=== PATIENT | male | born 1950 | race African-American/Black ===

== ENCOUNTER 2017-05-12 04:32 | Emergency (ER) | payer OTHER ==
[~2017-05-12] VITALS: Ht 175.3 cm; Wt 86.4 kg
[~2017-05-12 04:32] MED LIST: ASPI-1182 PO; LISI40TA4 PO; METO50 PO; MORP60TA6 PO; NAPR-58 PO; PERCT PO; QUET300T2 PO
[2017-05-12 04:34] VITALS: BP 158/85
[2017-05-12] MEDS ORDERED: HYDR25TA PO (04:42)
== END 2017-05-12 05:22 | disposition home or self-care (01) ==
LOC: EMS 04:33
DX: S13.4XXA Sprain of ligaments of cervical spine, initial encounter (principal); S39.012A Strain of muscle, fascia and tendon of lower back, initial encounter; I10 Essential (primary) hypertension; V49.40XA Driver injured in collision with unspecified motor vehicles in traffic accident, initial encounter; Y93.89 Activity, other specified; Y92.89 Other specified places as the place of occurrence of the external cause; Y99.8 Other external cause status
CPT/HCPCS: 99281

== ENCOUNTER 2023-01-24 00:49 | Emergency (ER) | payer MEDICARE, OTHER ==
[~2023-01-24] VITALS: Ht 175.3 cm; Wt 85.0 kg
[~2023-01-24 00:49] MED LIST changes: -ASPI-1182 PO; +HYDR25TA2 PO; -LISI40TA4 PO; +LISI40TA9 PO; -METO50 PO; -MORP60TA6 PO; -NAPR-58 PO; -QUET300T2 PO
[2023-01-24 00:54] VITALS: BP 159/96; PULSE 71; RESP 20; TEMP 98.2
[2023-01-24] MEDS ORDERED: DOXYCYCLINE HYCLATE 100 MG TABLET PO ONE (01:00)
[2023-01-24] MEDS ORDERED: BACITRACIN 0.9 GM PACKET OINTMENT TP ONE (01:00)
[2023-01-24] MEDS ORDERED: DOXY-354 PO (01:07)
[2023-01-24] MEDS ORDERED: BACI28.410 TP (01:07)
== END 2023-01-24 01:23 | disposition home or self-care (01) ==
LOC: EMS 00:50
DX: L03.113 Cellulitis of right upper limb (principal); I10 Essential (primary) hypertension
CPT/HCPCS: 99283

== ENCOUNTER 2023-06-17 19:19 | Emergency (ER) | payer MEDICARE, OTHER ==
[~2023-06-17] VITALS: Ht 175.3 cm; Wt 86.4 kg
[~2023-06-17 19:19] MED LIST changes: +AMLO-258 PO; +DULO-114 PO; -HYDR25TA2 PO; -LISI40TA9 PO; -PERCT PO
[2023-06-17 19:24] VITALS: BP 128/75; PULSE 86; RESP 18; TEMP 98.2
[2023-06-17] MEDS ORDERED: LISI40TA9 PO (19:40)
[2023-06-17] MEDS ORDERED: BACITRACIN 0.9 GM PACKET OINTMENT TP ONE (19:45)
[2023-06-17] MEDS: PERTUSS(ACELL),DIPH,TET/PF 0.5 ML SYRINGE [ADULT] IM. ONE (20:27)
== END 2023-06-17 21:09 | disposition home or self-care (01) ==
LOC: EMS 19:20
DX: S61.210A Laceration without foreign body of right index finger without damage to nail, initial encounter (principal); I10 Essential (primary) hypertension; F17.210 Nicotine dependence, cigarettes, uncomplicated; F12.90 Cannabis use, unspecified, uncomplicated; Z98.890 Other specified postprocedural states; W25.XXXA Contact with sharp glass, initial encounter; Y93.89 Activity, other specified; Y92.89 Other specified places as the place of occurrence of the external cause; Y99.8 Other external cause status
CPT/HCPCS: 12001; 90471; 90715; 99283

== ENCOUNTER 2024-04-23 20:33 | Emergency (ER) | payer MEDICARE, OTHER ==
[~2024-04-23] VITALS: Ht 175.3 cm; Wt 86.4 kg
[~2024-04-23 20:33] MED LIST changes: +LISI40TA9 PO
[2024-04-23 20:46] VITALS: TEMP 98.2
[2024-04-24] MEDS: TraMADol HCL 50 MG TABLET PO ONE (00:02)
[2024-04-24] MEDS: KETOROLAC TROMETHAMINE 30 MG/ML VIAL IM ONE (00:02)
[2024-04-24] MEDS: LIDOCAINE 5% TRANSDERMAL PATCH TD ONE (00:03)
[2024-04-24 01:52] VITALS: BP 122/83; PULSE 61; RESP 16; O2SAT 100
[2024-04-24] MEDS ORDERED: LIDO700A15 TP (02:08)
[2024-04-24] MEDS ORDERED: CYCL-448 PO (02:08)
== END 2024-04-24 02:17 | disposition home or self-care (01) ==
LOC: EMS 20:33
DX: G89.29 Other chronic pain (principal); M54.50 Low back pain, unspecified; I10 Essential (primary) hypertension; F17.210 Nicotine dependence, cigarettes, uncomplicated; F12.90 Cannabis use, unspecified, uncomplicated; Z79.899 Other long term (current) drug therapy; Z98.890 Other specified postprocedural states
CPT/HCPCS: 99283; 72100; 96372; J1885

== ENCOUNTER 2024-06-08 16:02 | Emergency (ER) | payer MEDICARE, OTHER ==
[~2024-06-08] VITALS: Ht 175.3 cm; Wt 86.4 kg
[~2024-06-08 16:02] MED LIST changes: +CYCL-448 PO; +LIDO700A15 TP
[2024-06-08 16:19] VITALS: BP 115/70; PULSE 73; RESP 18; TEMP 97.9; O2SAT 98
[2024-06-08] MEDS ORDERED: HYDR25TA PO (16:21)
[2024-06-08] MEDS ORDERED: CLOT15CR75 TP (17:43)
[2024-06-08] MEDS ORDERED: TERB250T90 PO (17:43)
== END 2024-06-08 18:01 | disposition home or self-care (01) ==
LOC: EMS 16:02
DX: B35.3 Tinea pedis (principal); B35.1 Tinea unguium; I10 Essential (primary) hypertension; F12.90 Cannabis use, unspecified, uncomplicated; F17.210 Nicotine dependence, cigarettes, uncomplicated; Z79.899 Other long term (current) drug therapy
CPT/HCPCS: 99283; Z7502

== ENCOUNTER 2024-11-10 04:16 | Emergency (ER) | payer MEDICARE, OTHER ==
[~2024-11-10] VITALS: Ht 175.3 cm; Wt 86.4 kg
[~2024-11-10 04:16] MED LIST changes: -AMLO-258 PO; +CLOT15CR75 TP; -CYCL-448 PO; -DULO-114 PO; +HYDR25TA PO; -LIDO700A15 TP; -LISI40TA9 PO; +TERB250T90 PO
[2024-11-10 04:22] VITALS: TEMP 98.4
[2024-11-10 04:52] LABS: PLATELET COUNT (AUTO) 145 K/uL (150-450); RED BLOOD CELL COUNT(AUTO) 4.42 MIL/uL (4.50-5.90); RED CELL DISTRIBUTION WIDTH 14.1 % (11.5-14.5); WHITE BLOOD COUNT (AUTO) 6.2 K/uL (4.5-11.0)
[2024-11-10 05:01] LABS: CALCIUM, TOTAL 9.7 mg/dL (8.8-10.5); CREATININE 1.35 mg/dL (0.60-1.30); GLOMERULAR FILTR. RATE CALC > 60 mL/min (>60); GLUCOSE,RANDOM 111 mg/dL (70-110); SODIUM SERUM 144 mmol/L (136-145); UREA NITROGEN, BLOOD 18 mg/dL (7-18)
[2024-11-10 06:19] VITALS: BP 124/66; PULSE 71; RESP 16; O2SAT 98
[2024-11-10] MEDS: BACITRACIN 28 GM OINTMENT TP ONE (07:00)
== END 2024-11-10 07:14 | disposition home or self-care (01) ==
LOC: EMS 04:17
DX: S90.411A Abrasion, right great toe, initial encounter (principal); I10 Essential (primary) hypertension; F12.90 Cannabis use, unspecified, uncomplicated; F17.210 Nicotine dependence, cigarettes, uncomplicated; Z98.890 Other specified postprocedural states; Z79.899 Other long term (current) drug therapy; X58.XXXA Exposure to other specified factors, initial encounter; Y93.89 Activity, other specified; Y92.89 Other specified places as the place of occurrence of the external cause; Y99.8 Other external cause status
CPT/HCPCS: 80048; 85025; 99283

== ENCOUNTER 2024-12-09 12:46 | Emergency (ER) | payer MEDICARE, OTHER ==
[~2024-12-09] VITALS: Ht 175.3 cm; Wt 81.8 kg
[2024-12-09 12:50] VITALS: BP 148/98; PULSE 67; RESP 18; TEMP 97.2; O2SAT 98
[2024-12-09] MEDS ORDERED: CEPH-558 PO (14:14)
[2024-12-09] MEDS ORDERED: SULF-261 PO (14:14)
[2024-12-09] MEDS: BACITRACIN 28 GM OINTMENT TP ONE (14:19)
[2024-12-09] MEDS: CEPHALEXIN MONOHYDRATE 500 MG CAPSULE PO ONE (14:19)
[2024-12-09] MEDS: SULFAMETHOX/TRIMETH DS 800-160 MG/TABLET PO ONE (14:19)
== END 2024-12-09 14:29 | disposition home or self-care (01) ==
LOC: EMS 12:46
DX: L03.031 Cellulitis of right toe (principal); I10 Essential (primary) hypertension; F12.90 Cannabis use, unspecified, uncomplicated; F17.210 Nicotine dependence, cigarettes, uncomplicated; Z98.890 Other specified postprocedural states; Z79.899 Other long term (current) drug therapy
CPT/HCPCS: 99284; Z7502; Z7610